=== PATIENT | female | born 1960 | race Caucasian/White ===

== ENCOUNTER → 2016-09-29 | Outpatient (REF) | LOC: M LAB 11:17 | PROVIDERS: ATTEND Nurse Practitioner Adult Health | DX: Z02.89 Encounter for other administrative examinations (principal) ==

== ENCOUNTER → 2016-10-21 | Outpatient (REF) | payer BC ==
[2016-10-22 07:57] LABS: CONTROL LINE HPYORI INT CTR LINE PRESENT
== END ==
LOC: M LAB REF 13:23
PROVIDERS: ATTEND Internal Medicine
DX: K21.9 Gastro-esophageal reflux disease without esophagitis (principal)

== ENCOUNTER 2019-04-28 23:29 | Emergency (ER) | payer BC ==
[~2019-04-28] VITALS: Ht 157.5 cm; Wt 71.8 kg
[2019-04-28] MEDS ORDERED: LISI-542 PO (23:38)
[2019-04-28] MEDS ORDERED: TUMS500C PO (23:38)
[2019-04-28] MEDS ORDERED: RANI1TAB38 PO (23:38)
[2019-04-29 00:23] LABS: BASO # 0.1 10^3/uL (0.0-0.2); EOS # 0.1 10^3/uL (0.0-0.50); EOS % 1.5 % (0.0-3.0); HEMATOCRIT 39.6 % (36.0-47.0); HEMOGLOBIN 13.7 g/dl (12.0-15.5); LYMPH # 2.7 10^3/uL (1.5-4.5); MEAN CORPUSCULAR HEMOGLOBIN 29.3 pg (27.0-33.0); MEAN CORPUSCULAR HGB CONC 34.6 g/dl (32.0-36.5); MEAN CORPUSCULAR VOLUME 84.8 fl (80.0-96.0); MONO # 0.6 10^3/uL (0.0-0.8); MONO % 9.3 % (0.0-5.0); NEUTROPHILS # 3.3 10^3/uL (1.8-7.7); NEUTROPHILS % 49.1 % (36.0-66.0); PLATELET COUNT, AUTOMATED 275 10^3/uL (150-450); RED BLOOD COUNT 4.67 10^6/uL (4.00-5.40); WHITE BLOOD COUNT 6.8 10^3/uL (4.0-10.0)
[2019-04-29] MEDS ORDERED: KETOROLAC 30 MG/ML VIAL (J1885) IV ONE (00:30)
[2019-04-29] MEDS ORDERED: NS 500 ML IV ONE (00:30)
[2019-04-29 00:34] LABS: ALBUMIN 4.1 GM/DL (3.2-5.2); ALT/SGPT 29 U/L (12-78); AMYLASE 42 U/L (25-115); BILIRUBIN,DIRECT < 0.1 MG/DL (0.0-0.2); BILIRUBIN,TOTAL 0.4 MG/DL (0.2-1.0); BLOOD UREA NITROGEN 15 MG/DL (7-18); CALCIUM LEVEL 9.9 MG/DL (8.5-10.1); CARBON DIOXIDE LEVEL 29 MEQ/L (21-32); CHLORIDE LEVEL 105 MEQ/L (98-107); CK-MB VALUE MASS 1.9 NG/ML (<3.6); CPK CREATINE PHOSPHOKINASE 92 U/L (26-192); CREATININE FOR GFR 0.74 MG/DL (0.55-1.30); GLOMERULAR FILTRATION RATE > 60.0 (>51); GLUCOSE, FASTING 110 MG/DL (70-100); LIPASE 193 U/L (73-393); MB/CK RELATIVE INDEX 2.07 (< OR =4); POTASSIUM SERUM 3.7 MEQ/L (3.5-5.1); SODIUM LEVEL 138 MEQ/L (136-145); TOTAL PROTEIN 7.3 GM/DL (6.4-8.2); TROPONIN I < 0.02 NG/ML (< 0.10)
[2019-04-29] MEDS ORDERED: ISOVUE-370 76% 100ML VIAL (Q9967) As Ordered ONE (00:46)
--- NOTE | 2019-04-29 01:41 | REPVR ---
EXAM: CT Abdomen and Pelvis With Contrast EXAM DATE/TIME: 04/29/2019 12:57 AM CLINICAL HISTORY: 59 years old, female; Abdominal pain; Generalized TECHNIQUE: Imaging protocol: Computed tomography images of the abdomen and pelvis with intravenous contrast. Radiation optimization: All CT scans at this facility use at least one of these dose optimization techniques: automated exposure control; mA and/or kV adjustment per patient size (includes targeted exams where dose is matched to clinical indication); or iterative reconstruction. Contrast material: ISOVUE 370; Contrast volume: 100 ml; Contrast route: IV; COMPARISON: No relevant prior studies available. FINDINGS: Mediastinum: Small hiatal hernia. Liver: Diffuse hepatic steatosis. Gallbladder and bile ducts: Cholelithiasis and mild gallbladder distention with suggestion of mild gallbladder wall thickening. Pancreas: Unremarkable. Spleen: Unremarkable. Adrenals: Unremarkable. Kidneys and ureters: No mass. No radiodense calculi. No hydronephrosis. Stomach and bowel: Scattered colonic diverticula without evidence of diverticulitis. No obstruction. No bowel wall thickening. No pneumatosis. Appendix: Appendix not identified with certainty but no right lower quadrant inflammatory change to suggest acute appendicitis. Intraperitoneal space: No free fluid. No organized fluid collection. No free air. Vasculature: Unremarkable. No aneurysm. Lymph nodes: No pathologically enlarged lymph nodes. Bladder: Unremarkable. Reproductive: Status post hysterectomy. Bones/joints: No acute osseous abnormality. Osteopenia. Mild degenerative changes. Soft tissues: Unremarkable. IMPRESSION: 1. Cholelithiasis and mild gallbladder distention with suggestion of mild gallbladder wall thickening. If clinically indicated, ultrasound or HIDA scan would provide a more sensitive evaluation for acute cholecystitis. 2. Additional findings, as above. Electronically signed by: Nirav Butler On 04/29/2019 01:41:23 AM
[2019-04-29 02:35] VITALS: BP 144/78
[2019-04-29] MEDS ORDERED: traMADol 50 MG TAB PO ONE (02:45)
--- NOTE | 2019-04-29 07:20 | ECGEPIP ---
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
--- NOTE | 2019-04-30 06:47 | ED PDOC ---
Post-Departure Follow-Up dr david and dr hester faxed formal report of ct abd/p for fu Ryanne Nogueira MD Apr 30, 2019 06:47
[2019-05-10] MEDS ORDERED: D3 U5000 PO (13:04)
[2019-05-10] MEDS ORDERED: NAPR250T4 PO (13:04)
== END 2019-04-29 03:07 | disposition home or self-care (01) ==
LOC: M ED 23:29
DX: K80.20 Calculus of gallbladder without cholecystitis without obstruction (principal); R11.10 Vomiting, unspecified; I10 Essential (primary) hypertension; K21.9 Gastro-esophageal reflux disease without esophagitis; Z88.5 Allergy status to narcotic agent; Z79.899 Other long term (current) drug therapy
CPT/HCPCS: 74177; 80053; 82150; 82248; 82550; 82553; 83690; 84484; 85025; 93005; 93041; 96361; 96374; 99284; J1885; Q9967

== ENCOUNTER 2019-05-15 07:18 | Day surgery (SDC) | payer BC ==
[~2019-05-15] VITALS: Ht 157.5 cm; Wt 69.4 kg
[~2019-05-15 07:18] MED LIST: D3 U5000 PO; LIDOCAINE 1% MDV 20ML VIAL SQ PRN; LISI-542 PO; LR 1,000 ML IV ONE; NAPR250T4 PO; RANI1TAB38 PO; TUMS500C PO; ceFAZolin SOD 1 GM in D5W MINI-BAG PLUS 50 ML IV ONE
[2019-05-15] MEDS ORDERED: ROCURONIUM BROMIDE 50 MG/5 ML VIAL As Ordered ONE (08:04)
[2019-05-15] MEDS ORDERED: LIDOCAINE 2% INJ 100 MG/5 ML SDV (FOR ANES.) As Ordered ONE (08:04)
[2019-05-15] MEDS ORDERED: PROPOFOL 200 MG/20 ML VIAL As Ordered ONE (08:04)
[2019-05-15] MEDS ORDERED: SUGAMMADEX SODIUM 500 MG/5 ML VIAL (BRIDION) As Ordered ONE (08:04)
[2019-05-15] MEDS ORDERED: KETOROLAC 60 MG/2 ML VIAL (J1885) As Ordered ONE (08:04)
[2019-05-15] MEDS ORDERED: ONDANSETRON 4MG/2ML VIAL (J2405) As Ordered ONE (08:04)
[2019-05-15] MEDS ORDERED: dexameTHASONE 4 MG/ML 1ML VIAL (J1100) As Ordered ONE (08:04)
[2019-05-15] MEDS ORDERED: fentaNYL 100 MCG/2 ML INJECTION (J3010) As Ordered ONE ×2 (08:05→10:58)
[2019-05-15] MEDS ORDERED: MIDAZOLAM INJ 2 MG/2 ML VIAL (J2250) As Ordered ONE (08:05)
[2019-05-15] MEDS ORDERED: BUPIVACAINE/EPIN 0.25% 30 ML VIAL As Ordered ONE (09:31)
[2019-05-15] MEDS ORDERED: ACETAMINOPHEN 1000MG 100ML IV BTL (OFIRMEV) (J0131 PER 10MG) As Ordered ONE (10:23)
[2019-05-15] MEDS ORDERED: BUPIVACAINE LIPOSOME/PF 1.3% 20ML VIAL (13.3MG/ML)(EXPAREL)(C9290 PER1MG) As Ordered ONE (10:55)
[2019-05-15] MEDS ORDERED: ONDANSETRON 4MG/2ML VIAL (J2405) IV PRN (11:30)
[2019-05-15] MEDS ORDERED: fentaNYL 100 MCG/2 ML INJECTION (J3010) IV PRN (11:30)
[2019-05-15] MEDS ORDERED: PERCOCET 5MG/325MG TAB PO PRN (11:30)
[2019-05-15] MEDS ORDERED: LR 1,000 ML IV SCH ×2 (11:30→12:30)
--- NOTE | 2019-05-15 11:52 | RO ---
DATE OF PROCEDURE: 05/15/2019 PREPROCEDURE DIAGNOSIS: History of cholecystitis. POSTPROCEDURE DIAGNOSIS: History of cholecystitis. PROCEDURE: Laparoscopic cholecystectomy. SURGEON: Jaziel Bowie MD ANESTHESIA: General endotracheal anesthesia. ESTIMATED BLOOD LOSS: Minimal. FLUIDS: Crystalloid. PROCEDURE SUMMARY: The patient was brought to the operating room and was given general anesthesia. And after adequate anesthesia and preoperative antibiotics were given, the patient was prepped and draped in the usual sterile fashion. Next, a supraumbilical incision was made with skin knife. Blunt dissection was carried down to fascia. Fascia was entered with Veress needle, insufflated to 15 mm of pressure. Dilating 10 mm trocar was placed and under direct visualization an epigastric and two lateral trocars were placed. The patient had a very tensely distended gallbladder with thickened gallbladder wall with edema in the gallbladder wall and evidence of probable cystic duct obstruction. The aspiration needle was used to remove mucous / inspissated bile from the gallbladder itself. No evidence of purulent fluid was obtained. The peritoneum was taken down on the lateral side, then anteriorly and medial showing the cystic artery very close to the cystic duct. Eventually, a good window behind the neck of the gallbladder was created. The cystic artery was clipped proximally and then transected with electrocautery. This was right at the level of the cystic duct node. An even better window behind the neck of the gallbladder was created and cystic duct was clipped proximally, distally and transected. The gallbladder wall was thickened enough and edematous enough, as well as fibrotic attached to the bed of the liver but it did take a little while to eventually dissect this out and eventually remove this from the gallbladder bed and place this in an EndoCatch bag and brought out through the umbilicus. There was minimal bile spillage at the umbilicus and this was cleaned out and then the fascia, which needed to be opened because of a large hard gallstone within the gallbladder, was closed with two [id number] 0 Vicryl. All incisions were then closed with 4-0 Vicryl. Steri-Strips and dry sterile dressing was applied. The patient was awakened, extubated, and brought to recovery room awake, alert, hemodynamically stable. Sponge and needle counts correct times two.
[2019-05-15] MEDS ORDERED: NORCO, ANEXSIA 5/325MG TABLET (HYDROcodone/ACETAMINOPHEN) PO PRN (12:45)
[2019-05-15 13:35] VITALS: BP 140/69
[2019-05-15] MEDS ORDERED: KETOROLAC 30 MG/ML VIAL (J1885) IV SCH (17:00)
--- NOTE | 2019-05-15 18:23 | ECGEPIP ---
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
== END 2019-05-15 13:35 | disposition home or self-care (01) ==
LOC: M SDC 07:18
PROVIDERS: ATTEND Surgery
DX: K80.10 Calculus of gallbladder with chronic cholecystitis without obstruction (principal); I10 Essential (primary) hypertension; K57.90 Diverticulosis of intestine, part unspecified, without perforation or abscess without bleeding; K21.9 Gastro-esophageal reflux disease without esophagitis; Z79.899 Other long term (current) drug therapy
CPT/HCPCS: 47562; 88304; 93005; C9290; J0131; J0690; J1100; J1885; J2250; J2405; J3010

== ENCOUNTER → 2019-06-13 | Outpatient (CLI) | payer BC ==
[~2019-06-13] MED LIST changes: -LIDOCAINE 1% MDV 20ML VIAL SQ PRN; -LR 1,000 ML IV ONE; -ceFAZolin SOD 1 GM in D5W MINI-BAG PLUS 50 ML IV ONE
--- NOTE | 2019-06-13 11:25 | REP ---
Right hip two views : There is no fracture or dislocation. Mineralization and joint spaces are normal. There are no calcifications or foreign bodies. Impression: Negative right hip. If symptoms persist or worsen, consider MRI. Electronically Signed by Herb Hutchison MD 06/13/2019 11:17 A
== END ==
LOC: M WUC 08:59
PROVIDERS: ATTEND Physician Assistant
DX: M25.551 Pain in right hip (principal)

== ENCOUNTER → 2019-07-12 | Outpatient (REF) | payer BC ==
[2019-07-12 15:54] LABS: C REACTIVE PROTEIN QUANTITATIV 9.47 MG/DL (0.00-0.30)
[2019-07-12 16:09] LABS: MONO SCRN NEGATIVE (NEGATIVE)
== END ==
LOC: M LAB REF 15:18
PROVIDERS: ATTEND Internal Medicine
DX: Z11.59 Encounter for screening for other viral diseases (principal)

== ENCOUNTER → 2021-01-23 | Outpatient (CLI) | payer BC ==
[~2021-01-23] MED LIST changes: -LISI-542 PO; +LISI-898 PO; +NAPR-849 PO; -NAPR250T4 PO
--- NOTE | 2021-01-23 11:29 | REP ---
INDICATION: PAIN. COMPARISON: 06/13/2019 TECHNIQUE: AP and frog-lateral views FINDINGS: There is no evidence of an acute fracture or destructive osseous lesion. Degenerative changes are again seen involving the right hip which are unchanged. IMPRESSION: As above <Electronically signed by Scot Soares > 01/23/21 1126
== END ==
LOC: M WUC 10:52
PROVIDERS: ATTEND Internal Medicine
DX: M16.11 Unilateral primary osteoarthritis, right hip (principal); M25.551 Pain in right hip

== ENCOUNTER → 2021-02-27 | Outpatient (REF) | payer BC ==
[2021-02-27 17:20] LABS: PERCENT SATURATION 41.8 % (13.2-45.0)
== END ==
LOC: M LAB REF 16:30
PROVIDERS: ATTEND Internal Medicine
DX: R53.83 Other fatigue (principal)

== ENCOUNTER → 2022-01-08 | Outpatient (CLI) | payer BC, OTHER ==
[~2022-01-08] MED LIST changes: +AMLO1TAB24 PO; +D 50CAP2 PO; +D3 H2000 PO; +L-LY500T23 PO; -LISI-898 PO; +LISI5TAB11 PO; +VITA500C24 PO; +VITMTA PO; +ZINC1TAB2 PO
== END ==
LOC: M LABSMTC 09:35
PROVIDERS: ATTEND Anesthesiology
DX: Z01.812 Encounter for preprocedural laboratory examination (principal); Z20.822 Contact with and (suspected) exposure to COVID-19

== ENCOUNTER 2022-01-13 09:57 | Day surgery (SDC) | payer OTHER ==
[~2022-01-13] VITALS: Ht 157.5 cm; Wt 74.8 kg
[~2022-01-13 09:57] MED LIST changes: +NS 1,000 ML IV ONE
[2022-01-13] MEDS ORDERED: propofoL 200 MG/20 ML VIAL As Ordered ONE (11:00)
[2022-01-13] MEDS ORDERED: LIDOCAINE 2% 100MG/5ML SDV (FOR ANES.) As Ordered ONE (11:00)
[2022-01-13] MEDS ORDERED: LABETALOL 100MG/20ML VIAL As Ordered ONE (11:41)
[2022-01-13 12:10] VITALS: BP 120/56
== END 2022-01-13 12:27 | disposition home or self-care (01) ==
LOC: M OPP 09:57
PROVIDERS: ATTEND Internal Medicine Gastroenterology
DX: K62.5 Hemorrhage of anus and rectum (principal); K64.0 First degree hemorrhoids; Z79.899 Other long term (current) drug therapy; Z88.5 Allergy status to narcotic agent; Z87.891 Personal history of nicotine dependence

== ENCOUNTER → 2022-03-03 | Outpatient (REF) | payer OTHER ==
[~2022-03-03] MED LIST changes: -NS 1,000 ML IV ONE
== END ==
LOC: M LAB REF 16:18
PROVIDERS: ATTEND Registered Nurse
DX: R30.0 Dysuria (principal)

== ENCOUNTER → 2023-04-15 | Outpatient (REF) | payer OTHER | LOC: M WUC 21:53 | PROVIDERS: ATTEND Physician Assistant | DX: R10.814 Left lower quadrant abdominal tenderness (principal) ==

== ENCOUNTER → 2023-04-21 | Outpatient (REF) | payer OTHER | LOC: M LAB REF 16:43 | PROVIDERS: ATTEND Internal Medicine | DX: R31.9 Hematuria, unspecified (principal); R10.2 Pelvic and perineal pain ==

== ENCOUNTER → 2023-11-25 | Outpatient (REF) | payer OTHER ==
[2023-11-25 13:12] LABS: PERCENT SATURATION 23.8 % (13.2-45.0)
== END ==
LOC: M LAB REF 11:22
PROVIDERS: ATTEND Internal Medicine
DX: R63.4 Abnormal weight loss (principal); Z65.9 Problem related to unspecified psychosocial circumstances

== ENCOUNTER → 2025-08-13 | Outpatient (REF) | payer OTHER ==
[2025-08-16 19:09] LABS: LYME TOTAL ANTIBODY CIA <= 0.90 Index (<=0.90)
== END ==
LOC: M LAB REF 12:37
PROVIDERS: ATTEND Internal Medicine
DX: M25.512 Pain in left shoulder (principal); M25.552 Pain in left hip

== ENCOUNTER → 2025-08-14 | Outpatient (CLI) | payer MEDICARE | LOC: M WUC 09:58 | PROVIDERS: ATTEND Internal Medicine | DX: M25.552 Pain in left hip (principal); M19.012 Primary osteoarthritis, left shoulder ==